=== PATIENT | female | born 1990 | race Caucasian/White ===

== ENCOUNTER 2019-05-21 10:05 | Inpatient (IN) | payer OTHER ==
[~2019-05-21] VITALS: Ht 162.6 cm; Wt 96.4 kg
[2019-05-21 11:05] LABS: HEMATOCRIT 43.9 % (36.0-47.0); HEMOGLOBIN 14.8 g/dl (12.0-15.5); MEAN CORPUSCULAR HEMOGLOBIN 29.3 pg (27.0-33.0); MEAN CORPUSCULAR HGB CONC 33.7 g/dl (32.0-36.5); MEAN CORPUSCULAR VOLUME 86.9 fl (80.0-96.0); PLATELET COUNT, AUTOMATED 373 10^3/uL (150-450); RED BLOOD COUNT 5.05 10^6/uL (4.00-5.40); WHITE BLOOD COUNT 5.9 10^3/uL (4.0-10.0)
[2019-05-21 11:46] LABS: ACETAMINOPHEN LEVEL < 2.0 UG/ML (10.0-30.0); ALBUMIN 4.6 GM/DL (3.2-5.2); ALT/SGPT 139 U/L (12-78); BILIRUBIN,DIRECT 0.1 MG/DL (0.0-0.2); BILIRUBIN,TOTAL 0.4 MG/DL (0.2-1.0); BLOOD UREA NITROGEN 10 MG/DL (7-18); CALCIUM LEVEL 9.2 MG/DL (8.5-10.1); CARBON DIOXIDE LEVEL 26 MEQ/L (21-32); CHLORIDE LEVEL 105 MEQ/L (98-107); CREATININE FOR GFR 2.24 MG/DL (0.55-1.30); ETHYL ALCOHOL (ETHANOL) < 0.003 % (0.000-0.010); GLOMERULAR FILTRATION RATE 27.5 (>60); GLUCOSE, FASTING 127 MG/DL (70-100); POTASSIUM SERUM 3.8 MEQ/L (3.5-5.1); SALICYLATE LEVEL < 1.7 MG/DL (5.0-30.0); SODIUM LEVEL 139 MEQ/L (136-145); THYROID STIMULATING HORMONE 0.392 uIU/ML (0.358-3.740); TOTAL PROTEIN 8.3 GM/DL (6.4-8.2)
[2019-05-21 12:40] LABS: AMPHETAMINES LEVEL URINE NEGATIVE (NEGATIVE); BARBITURATES URINE NEGATIVE (NEGATIVE); BENZODIAZEPINES URINE NEGATIVE (NEGATIVE); CANNABINOIDS URINE NEGATIVE (NEGATIVE); COCAINE METABOLITE URINE NEGATIVE (NEGATIVE); METHADONE URINE NEGATIVE (NEGATIVE); OPIATES URINE NEGATIVE (NEGATIVE); PHENCYCLIDINE URINE NEGATIVE (NEGATIVE)
[2019-05-21] MEDS ORDERED: MAALOX 30 ML SUSP *UDC PO PRN (16:45)
[2019-05-21] MEDS ORDERED: ACETAMINOPHEN TAB 650MG DOSE (2X325MG) PO PRN (16:45)
[2019-05-21] MEDS ORDERED: MOM 30ML SUSPENSION UDC PO PRN (16:45)
[2019-05-21 17:34] VITALS: BP 154/84
[2019-05-21] MEDS: traZODone 50 MG TAB PO PRN (22:03)
[2019-05-22 06:55] VITALS: BP 133/90
--- NOTE | 2019-05-22 08:42 | HPEPDOC ---
[facility] Medical History & Physical Date of Admission May 22, 2019 Date of Service: May 22, 2019 History and Physical CHIEF COMPLAINT: Admitted to inpatient mental health unit for depression HISTORY OF PRESENT ILLNESS: 28-year-old female with past medical history of depression and multiple suicide attempts, is admitted to inpatient mental health unit for worsening depression. Patient was having fleeting thoughts of suicide, went to see his psychiatrist yesterday who then admitted her to inpatient mental health unit. Patient denies any other medical history, denies taking any medications in the outpatient setting, has no complaints at this time. She denies any shortness of breath, chest pain, nausea, vomiting, abdominal pain, diarrhea, or urinary changes. 10 point review of system is negative except for above PAST MEDICAL HISTORY: 1. Depression. 2. Suicide attempt. PAST SURGICAL HISTORY: 1. None. SOCIAL HISTORY: Denies smoking. Denies alcohol. Denies drug use FAMILY HISTORY: Denies family history of cancer, heart disease ALLERGIES: Please see below. HOME MEDICATIONS: Please see below. PHYSICAL EXAMINATION: VITAL SIGNS: Please see below. GENERAL: No distress HEENT: Normocephalic, atraumatic, moist mucous membranes NECK: Supple CARDIOVASCULAR EXAMINATION: S1, S2, no murmurs RESPIRATORY EXAMINATION: Clear to auscultation, no wheezing ABDOMINAL EXAMINATION: Soft, nontender, nondistended, positive bowel sounds EXTREMITIES: Range of motion intact SKIN: No rash NEUROLOGICAL EXAMINATION: Alert and oriented 3, no focal deficits PSYCHIATRIC EXAMINATION: Calm and cooperative LABORATORY DATA: See below MICROBIOLOGY: Please see below. ASSESSMENT: 28-year-old female with past medical history depression and suicidal ideation is admitted to inpatient mental health unit for fleeting thoughts of vergara icide, found to have elevated creatinine. PLAN: 1. Elevated creatinine. No previous creatinine available for comparison, unknown etiology, patient denies any previous history and no composed at this time, likely acute, repeat CMP now, we'll treat based on current labs, hold off on extensive workup at this time. 2. depression/suicidal ideation. Management as per primary team Vital Signs Vital Signs Date Time Temp Pulse Resp B/P (MAP) Pulse Ox O2 Delivery O2 Flow Rate FiO2 05/22/19 06:55 99.2 95 18 133/90 (104) 94 Room Air Laboratory Data Labs 24H Laboratory Tests 2 05/21/19 10:55: Anion Gap 8, Glomerular Filtration Rate 27.5L, Calcium Level 9.2, Total Bilirubin 0.4, Direct Bilirubin 0.1, Aspartate Amino Transf (AST/SGOT) 60H, Alanine Aminotransferase (ALT/SGPT) 139H, Alkaline Phosphatase 63, Total Protein 8.3H, Albumin 4.6, Albumin/Globulin Ratio 1.24, Thyroid Stimulating Hormone (TSH) 0.392, Salicylates Level < 1.7L, Acetaminophen Level < 2.0L, Ethyl Alcohol Level < 0.003 05/21/19 10:56: Nucleated Red Blood Cells % (auto) 0.0 05/21/19 11:48: Urine Opiates Screen NEGATIVE, Urine Methadone Screen NEGATIVE, Urine Barbiturates Screen NEGATIVE, Urine Phencyclidine Screen NEGATIVE, Urine Amphetamines Screen NEGATIVE, Urine Benzodiazepines Screen NEGATIVE, Urine Cocaine Metabolite Screen NEGATIVE, Urine Cannabinoids Screen NEGATIVE CBC/BMP Laboratory Tests 05/21/19 10:55 05/21/19 10:56 Home Medications No Active Prescriptions or Reported Meds Allergies Coded Allergies: No Known Allergies (Verified Allergy, Unknown, 05/21/19) A-FIB/CHADSVASC A-FIB History Current/History of A-Fib/PAF?: No RICA IRVIN MD May 22, 2019 08:42
[2019-05-22] MEDS: NICOTINE 21MG/24HR 1 EA TRANSDERMAL TD SCH (09:00)
[2019-05-22 09:33] LABS: ALBUMIN 4.2 GM/DL (3.2-5.2); BILIRUBIN,TOTAL 0.4 MG/DL (0.2-1.0); CALCIUM LEVEL 8.9 MG/DL (8.5-10.1); CREATININE FOR GFR 1.9 MG/DL (0.55-1.30); GLOMERULAR FILTRATION RATE 33.3 (>60); POTASSIUM SERUM 3.7 MEQ/L (3.5-5.1); TOTAL PROTEIN 7.9 GM/DL (6.4-8.2)
[2019-05-22] MEDS ORDERED: NS 1,000 ML IV ONE (11:30)
--- NOTE | 2019-05-22 11:46 | MHHPEPDOC ---
[facility] History & Physical History and Physical DATE OF ADMISSION: May 21, 2019 at 16:38 New Patient Anyi Roberson MRN: N/A Date of : N/A Date of Service: 05/22/2019 Chief Complaint " I feel so lonely." History of Present Illness The patient a 28-year-old woman who is originally from [place] presents with likely adjustment problems in the form of low mood, fatigue, loss of interest, and anxiety related to having conflicts with her . She reports she is a dependent and had been seeing her therapist at [facility] and that she had some suicidal thoughts. She reports that she has conflict with her and that being he is her primary support structure in the local area she finds it difficult to cope whenever this happens. She reported feeling lonely and hopeless. The patient reports that she had suicidal thoughts, but they have vanished since she had arrived on our unit. The patient reports that she has been feeling depressed and tearful. Review Of Systems Depression: As above. Anxiety: As above. Susan: The patient denies any episodes of euphoria/dysphoria associated with decreased need for sleep, hedonism, talkatively or impulsivity lasting longer than 5 days. Psychotic: The patient denies any experiences of auditory or visual hallucinations. They deny any episodes of paranoia or delusional thinking in the past Trauma: The patient denies any traumatic events associated with nightmares or intrusive thoughts. Borderline: The patient screens negative for borderline personality at this junction. Past Psychiatric History Reports having admissions when she was a younger girl in [place] have been t ried on antidepressant, but no longer takes them. Recently established [facility] for therapy. Reports an overdose as a child. Allergies Please see below. Family Psychiatric History The patient denies/is unaware any history of mental health history including addictions and suicide. Social History The patient grew up in [place] and reports having verbally abusive parents, but no physical or sexual abuse growing up. She reports growing up in the [place] with cultural connections. She is currently a dependent and reports that she has no support in the local area. She has some income from the through her . She has no significant legal history and had completed high school. Substance Abuse History The patient denies any excessive alcohol use, tobacco or illicit drug use, denies history of substance use treatment. Medical History Patient has no significant past medical history. Mental Status Examination General: Well dressed with good hygiene Speech: Spontaneous and fluid Thought processes: Linear and logical MSK: Smooth and coordinated gait, no signs of tremors or involuntary orofacial movements Thought content: Some hopelessness. Abstract reasoning, and computation: Intact Description of associations: Intact Description of abnormal or psychotic thoughts: Denies any suicidal or homicidal ideation. Denies any auditory or visual hallucinations. Does not appear to be responding to internal stimuli. Does not appear to be endorsing any bizarre or paranoid ideation. Judgment: fair Insight: fair Orientation: Alert and orientated 3 Cognition: Grossly normal Recent and remote memory: Intact Attention span and concentration: Intact Fund of knowledge: Adequate Mood: "okay" Affect: Tearful at times. Diagnoses Unspecified depressive disorder. MDD versus adjustment. Assessment and Plan Unspecified depressive disorder/MDD: Start Wellbutrin 150 mg daily, screen negative for seizures and eating disorders at this time. Discussed risks, be nefits, and potential side effects with patient. Disposition Patient will be converted to a voluntary today as no longer meets involuntary criteria, will observe likely discharge in the next 1-2 days. Problem List 1. Risk for suicide. 2. Ineffective coping. Initial Treatment Plan 1. Patient was admitted on a 9.39 legal status. 2. Complete history was obtained. 3. With patients permission, family will be contacted and database will be expanded. 4. Patients medication regimen will be reviewed and changed accordingly. 5. Patient will be provided with protected environment. 6. Patient will be treated with individual, group, and milieu therapies. 7. Patient will receive supportive psych-education. 8. Discharge planning will commence immediately. 9. Outpatient follow-up treatment will be strongly recommended. 10. The initial treatment plan will focus initially on: Estimated Length Of Stay 3 days. Time Spent 70 minutes with greater than 50% of time spent on counseling/coordination of care. Friday Vital Signs Vital Signs Date Time Temp Pulse Resp B/P (MAP) Pulse Ox O2 Delivery O2 Flow Rate FiO2 05/22/19 06:55 99.2 95 18 133/90 (104) 94 Room Air Laboratory Data 24H Labs Laboratory Tests 2 05/21/19 11:48: Urine Opiates Screen NEGATIVE, Urine Methadone Screen NEGATIVE, Urine Barbiturates Screen NEGATIVE, Urine Phencyclidine Screen NEGATIVE, Urine Amphetamines Screen NEGATIVE, Urine Benzodiazepines Screen NEGATIVE, Urine Cocaine Metabolite Screen NEGATIVE, Urine Cannabinoids Screen NEGATIVE 05/22/19 08:49: Anion Gap 9, Glomerular Filtration Rate 33.3L, Calcium Level 8.9, Total Bilirubin 0.4, Aspartate Amino Transf (AST/SGOT) 52H, Alanine Aminotransferase (ALT/SGPT) 122H, Alkaline Phosphatase 64, Total Protein 7.9, Albumin 4.2, Albumin/Globulin Ratio 1.14 CBC/BMP Laboratory Tests 05/22/19 08:49 Medications No Active Prescriptions or Reported Meds Allergies Coded Allergies: No Known Allergies (Verified Allergy, Unknown, 05/21/19) A-FIB/CHADSVASC A-FIB History Current/History of A-Fib/PAF?: No LENA GOODEN DO May 22, 2019 11:46
[2019-05-22] MEDS ORDERED: buPROPion **XL** TABLET 150MG (WELLBUTRIN XL) PO ONE (14:00)
[2019-05-22 16:06] VITALS: BP 145/91
[2019-05-22] MEDS: traZODone 50 MG TAB PO PRN (20:44)
[2019-05-23 06:11] VITALS: BP 140/82
[2019-05-23 06:57] LABS: ALBUMIN 3.5 GM/DL (3.2-5.2); BILIRUBIN,TOTAL 0.4 MG/DL (0.2-1.0); CALCIUM LEVEL 8.9 MG/DL (8.5-10.1); CREATININE FOR GFR 1.28 MG/DL (0.55-1.30); GLOMERULAR FILTRATION RATE 52.5 (>60); POTASSIUM SERUM 3.9 MEQ/L (3.5-5.1); TOTAL PROTEIN 6.5 GM/DL (6.4-8.2)
--- NOTE | 2019-05-23 07:38 | IPNPDOC ---
Date Seen The patient was seen on 05/23/19. Progress Note 05/23/19 As suspected, elevated creatinine was likely secondary to pre-renal CLAUDETTE. Patient was given 1L of NS yesterday with normalization of creatinine today. LFTs were slightly elevated which are also trending down. Recommend outpatient follow up with PCP 1-2 weeks after discharge to monitor r enal/liver function. No further recommendations, please re-consult if needed. VS, I&O, 24H, Fishbone Vital Signs/I&O Vital Signs Date Time Temp Pulse Resp B/P (MAP) Pulse Ox O2 Delivery O2 Flow Rate FiO2 05/23/19 06:11 98.5 104 16 140/82 (101) 98 Room Air Laboratory Data 24H LABS Laboratory Tests 2 05/22/19 08:49: Anion Gap 9, Glomerular Filtration Rate 33.3L, Calcium Level 8.9, Total Bilirubin 0.4, Aspartate Amino Transf (AST/SGOT) 52H, Alanine Aminotransferase (ALT/SGPT) 122H, Alkaline Phosphatase 64, Total Protein 7.9, Albumin 4.2, Albumin/Globulin Ratio 1.14 05/23/19 06:18: Anion Gap 4L, Glomerular Filtration Rate 52.5L, Calcium Level 8.9, Total Bilirubin 0.4, Aspartate Amino Transf (AST/SGOT) 42H, Alanine Aminotransferase (ALT/SGPT) 91H, Alkaline Phosphatase 56, Total Protein 6.5, Albumin 3.5, Albumin/Globulin Ratio 1.17 CBC/BMP Laboratory Tests 05/22/19 08:49 05/23/19 06:18 RICA IRVIN MD May 23, 2019 07:38
[2019-05-23] MEDS: NICOTINE 21MG/24HR 1 EA TRANSDERMAL TD SCH (08:02)
[2019-05-23] MEDS ORDERED: buPROPion **XL** TABLET 150MG (WELLBUTRIN XL) PO SCH (09:00)
[2019-05-23] MEDS ORDERED: INFLUENZA QUADRIVALENT PF VACCINE 0.5ML SYRINGE (90686) IM ONE (09:00)
--- NOTE | 2019-05-23 10:51 | MHIPNPDOC ---
[facility] Progress Note Progress Note DATE OF SERVICE: 05/23/19 HISTORY: . VITAL SIGNS: See below. NEW TEST RESULTS: . CURRENT MEDICATIONS: See below. MENTAL STATUS EXAMINATION: Patient is a -year old female, who is . Speech: Is . Language skills are . Thought processes including: . Thought content: . Abstract reasoning, and computation: . Description of associations: . Description of abnormal or psychotic thoughts: . Judgment: . Insight: [very limited, good, fair. poor]. Orientation: . Recent and remote memory: . Attention span and concentration: . Language: . Fund of knowledge: . Mood: . Affect: . DIAGNOSES: 1. . 2. . 3. . ASSESSMENT: MANAGEMENT PLAN: . TIME SPENT: minutes. Vital Signs Vital Signs Date Time Temp Pulse Resp B/P (MAP) Pulse Ox O2 Delivery O2 Flow Rate FiO2 05/23/19 06:11 98.5 104 16 140/82 (101) 98 Room Air Laboratory Data 24H Labs Laboratory Tests 2 05/23/19 06:18: Anion Gap 4L, Glomerular Filtration Rate 52.5L, Calcium Level 8.9, Total Bili branham 0.4, Aspartate Amino Transf (AST/SGOT) 42H, Alanine Aminotransferase (ALT/SGPT) 91H, Alkaline Phosphatase 56, Total Protein 6.5, Albumin 3.5, Albumin/Globulin Ratio 1.17 CBC/BMP Laboratory Tests 05/23/19 06:18 Current Medications Current Medications Medications (Trade) Dose Ordered Sig/Darrell Route PRN Reason Start Time Stop Time Status Last Admin Dose Admin Acetaminophen (Tylenol Tab) 650 mg Q6HP PRN PO HEADACHE or DISCOMFORT 05/21/19 16:45 Al Hydrox/Mg Hydrox/Simethicone (Mylanta) 30 ml Q4HP PRN PO HEARTBURN/INDIGESTION 05/21/19 16:45 05/22/19 20:44 Bupropion HCl (Wellbutrin Xl) 150 mg QAM PO 05/23/19 09:00 05/23/19 08:27 Home Med (Med Rec Complete!) ASDIRECTED XX 05/21/19 14:30 05/21/19 14:29 DC Magnesium Hydroxide (Milk Of Magnesia) 30 ml DAILYPRN PRN PO CONSTIPATION 05/21/19 16:45 Nicotine (Nicoderm Cq 21mg) 1 patch DAILY TD 05/22/19 09:00 Trazodone HCl (Desyrel) 50 mg QHSP PRN PO INSOMNIA 05/21/19 16:45 05/22/19 20:44 Allergies Coded Allergies: No Known Allergies (Verified Allergy, Unknown, 05/21/19) LENA GOODEN DO May 23, 2019 10:51
--- NOTE | 2019-05-23 11:17 | MHDSPDOC ---
[facility] Discharge Summary Discharge Summary DATE OF ADMISSION: May 21, 2019 at 16:38 DATE OF DISCHARGE: 05/23/19 Discharge Anyi Roberson MRN: N/A Date of : N/A Date of Service: 05/23/2019 Diagnoses Unspecified depressive disorder. MDD versus adjustment. History of Present Illness The patient a 28-year-old woman who is originally from [place] presents with likely adjustment problems in the form of low mood, fatigue, loss of interest, and anxiety related to having conflicts with her . She reports she is a dependent and had been seeing her therapist at [facility] and that she had some suicidal thoughts. She reports that she has conflict with her and that being he is her primary support structure in the local area she finds it difficult to cope whenever this happens. She reported feeling lonely and hopeless. The patient reports that she had suicidal thoughts, but they have vanished since she had arrived on our unit. The patient reports that she has been feeling depressed and tearful. Consultants Involved Hospitalist/PCP screening Treatment and Progress On The Unit The patient is admitted to the mental health unit and subsequently started on Wellbutrin 150 mg daily which she tolerates well. She made some improvements and her suicidality was not present during her 48 hours of observation on our unit. She did well without any major interventions and demonstrate no concerning behavior or ideation upon her observing on our unit. She did have some tearfulness at first but stabilized well after being able to talk to her . She subsequently did well on our unit and requested discharge as she reported that she wanted to continue therapy as an outpatient and came up with an appropriate discharge plan. Discharge Assessment 28-year-old woman with a history of potentially adjustment versus MDD presents and is treated with appropriate antidepressant, improves well and no longer meets involuntary criteria after 48 hours of observation, initially we had planned on converting her to voluntary but she had requested discharge prior to filling out the form and thus would need to be discharged in good devin. The patient at the time of discharge did not meet criteria for involuntary admission/extension due to having a normal mental status exam, fair insight into the situation, They are engaged in the discharge process, as well as being friendly and amenable in behavioral control and havent been engaging in any observed concerning behavior or ideation recently. They decline voluntary ext ension/admission at this time and must be discharged in good devin, as Im unable to make a case for holding the patient against their will. They may have historical risk factors of admissions and other interactions with psychiatry however, those are not modifiable from a clinical perspective. The patient will need to be discharged in good devin. Mental Status Examination General: Well dressed with good hygiene Speech: Spontaneous and fluid Thought processes: Linear and logical MSK: Smooth and coordinated gait, no signs of tremors or involuntary orofacial movements Thought content: Future orientated Abstract reasoning, and computation: Intact Description of associations: Intact Description of abnormal or psychotic thoughts: Denies any suicidal or homicidal ideation. Denies any auditory or visual hallucinations. Does not appear to be responding to internal stimuli. Does not appear to be endorsing any bizarre or paranoid ideation. Judgment: fair Insight: fair Orientation: Alert and orientated 3 Cognition: Grossly normal Recent and remote memory: Intact Attention span and concentration: Intact Fund of knowledge: Adequate Mood: "okay" Affect: Euthymic with a full range Follow Up The social work team worked during the predischarge meeting in order to evaluate for further issues of lethality address them fully before discharge. They worked on safety planning with the patient's family members in order to ensure that the patient will have a safe and effective discharge. Time Spent The amount of time spent in the coordination of care for this patient was approximately 45 minutes. Friday Vital Signs/I&Os Vital Signs Date Time Temp Pulse Resp B/P (MAP) Pulse Ox O2 Delivery O2 Flow Rate FiO2 05/23/19 06:11 98.5 104 16 140/82 (101) 98 Room Air Laboratory Data Labs 24H Laboratory Tests 2 05/23/19 06:18: Anion Gap 4L, Glomerular Filtration Rate 52.5L, Calcium Level 8.9, Total Bilirubin 0.4, Aspartate Amino Transf (AST/SGOT) 42H, Alanine Aminotransferase (ALT/SGPT) 91H, Alkaline Phosphatase 56, Total Protein 6.5, Albumin 3.5, Albumin/Globulin Ratio 1.17 CBC/BMP Laboratory Tests 05/23/19 06:18 Medications Scheduled Bupropion Hcl (Bupropion Xl) 150 Mg Tab.er.24h, 150 MG PO QAM for mood for 7 Days, #7 Nicotine (Nicotine Patch) 21 Mg Patch.td24, 1 PATCH TD DAILY for tobacco for 30 Days, #30 Scheduled PRN Trazodone HCl (Trazodone HCl) 50 Mg Tablet, 100 MG PO QHSP PRN for INSOMNIA for 7 Days, #14 Allergies Coded Allergies: No Known Allergies (Verified Allergy, Unknown, 05/21/19) LENA GOODEN DO May 23, 2019 11:17
[2019-05-23] MEDS ORDERED: TRAZ-252 PO (11:24)
[2019-05-23] MEDS ORDERED: BUPR150T3 PO (11:24)
[2019-05-23] MEDS ORDERED: NICO21PAT TD (11:24)
== END 2019-05-23 14:05 | disposition home or self-care (01) | DRG 881 ==
LOC: M ED 10:05 → M ED INP 16:38 → M PSY 17:26
PROVIDERS: ADMIT Psychiatry & Neurology Addiction Medicine; ATTEND Psychiatry & Neurology Addiction Medicine
DX: F32.9 Major depressive disorder, single episode, unspecified (principal); F43.21 Adjustment disorder with depressed mood

== ENCOUNTER 2019-11-23 10:06 | Inpatient (IN) | payer OTHER ==
[~2019-11-23] VITALS: Ht 162.6 cm; Wt 106.6 kg
[~2019-11-23 10:06] MED LIST: BUPR150T3 PO; NICO21PAT TD; TRAZ-252 PO
[2019-11-23] MEDS ORDERED: NS 1,000 ML IV ONE (12:15)
[2019-11-23 12:17] LABS: HEMATOCRIT 43.1 % (36.0-47.0); HEMOGLOBIN 14.2 g/dl (12.0-15.5); MEAN CORPUSCULAR HEMOGLOBIN 28.2 pg (27.0-33.0); MEAN CORPUSCULAR HGB CONC 32.9 g/dl (32.0-36.5); MEAN CORPUSCULAR VOLUME 85.5 fl (80.0-96.0); PLATELET COUNT, AUTOMATED 379 10^3/uL (150-450); RED BLOOD COUNT 5.04 10^6/uL (4.00-5.40); WHITE BLOOD COUNT 6.2 10^3/uL (4.0-10.0)
[2019-11-23 12:29] LABS: AMPHETAMINES LEVEL URINE NEGATIVE (NEGATIVE); BARBITURATES URINE NEGATIVE (NEGATIVE); BENZODIAZEPINES URINE NEGATIVE (NEGATIVE); CANNABINOIDS URINE NEGATIVE (NEGATIVE); COCAINE METABOLITE URINE NEGATIVE (NEGATIVE); METHADONE URINE NEGATIVE (NEGATIVE); OPIATES URINE NEGATIVE (NEGATIVE); PHENCYCLIDINE URINE NEGATIVE (NEGATIVE)
[2019-11-23 12:46] LABS: HCG, SERUM QUALITATIVE NEGATIVE (NEGATIVE)
[2019-11-23 12:56] LABS: ACETAMINOPHEN LEVEL < 2.0 UG/ML (10.0-30.0); ALBUMIN 3.5 GM/DL (3.2-5.2); ALT/SGPT 296 U/L (12-78); BILIRUBIN,DIRECT < 0.1 MG/DL (0.0-0.2); BILIRUBIN,TOTAL 0.2 MG/DL (0.2-1.0); BLOOD UREA NITROGEN 12 MG/DL (7-18); CALCIUM LEVEL 7.9 MG/DL (8.5-10.1); CARBON DIOXIDE LEVEL 22 MEQ/L (21-32); CHLORIDE LEVEL 112 MEQ/L (98-107); CREATININE FOR GFR 0.78 MG/DL (0.55-1.30); ETHYL ALCOHOL (ETHANOL) 0.353 % (0.000-0.010); GLOMERULAR FILTRATION RATE > 60.0 (>60); GLUCOSE, FASTING 111 MG/DL (70-100); POTASSIUM SERUM 4.2 MEQ/L (3.5-5.1); SALICYLATE LEVEL < 1.7 MG/DL (5.0-30.0); SODIUM LEVEL 145 MEQ/L (136-145); THYROID STIMULATING HORMONE 0.583 uIU/ML (0.358-3.740); TOTAL PROTEIN 6.9 GM/DL (6.4-8.2)
[2019-11-23] MEDS ORDERED: FOLIC ACID 1 MG TAB PO SCH (19:00)
[2019-11-23] MEDS ORDERED: MULTIVITAMINS/MINERALS THERAP 1 TAB PO SCH (19:00)
[2019-11-23] MEDS ORDERED: THIAMINE 100 MG TAB PO SCH (19:00)
[2019-11-23] MEDS ORDERED: MULTCAP PO (19:04)
[2019-11-23] MEDS ORDERED: TRAZ-252 PO (19:04)
[2019-11-23] MEDS ORDERED: BUPR150T3 PO (19:04)
[2019-11-23] MEDS ORDERED: LORazepam 2 MG TAB PO PRN (19:15)
--- NOTE | 2019-11-24 07:20 | ECGEPIP ---
[facility] - ED Test Date: 2019-11-24 Pat Name: MAURA BUTLER Department: Room: - Gender: Female Customer Service Associate: ADA : 1990 Requested By: JASON Louis Order Number: [id number] Reading MD: Demario English Measurements Intervals Lynx Rate: 96 P: 29 NC: 153 QRS: 1 QRSD: 94 T: 24 QT: 370 QTc: 469 Interpretive Statements SINUS RHYTHM POOR R WAVE PROGRESSION NO PRIORS FOR COMPARISON Electronically Signed on 11-24-2019 7:20:51 EDT by Demario English
[2019-11-24] MEDS ORDERED: buPROPion **XL** TABLET 150MG (WELLBUTRIN XL) PO SCH (09:00)
[2019-11-24] MEDS ORDERED: MOM 30ML SUSPENSION UDC PO PRN (15:15)
[2019-11-24] MEDS ORDERED: MAALOX 30 ML SUSP *UDC PO PRN (15:15)
[2019-11-24] MEDS ORDERED: IBUPROFEN 400 MG TAB PO PRN (15:15)
[2019-11-24] MEDS ORDERED: LORazepam 2 MG TAB PO PRN (15:15)
[2019-11-24 15:49] VITALS: BP 150/98
[2019-11-24 16:34] VITALS: BP 150/98
[2019-11-24] MEDS: MULTIVITAMINS/MINERALS THERAP 1 TAB PO SCH (16:51)
[2019-11-24] MEDS: THIAMINE 100 MG TAB PO SCH (16:51)
[2019-11-24] MEDS: FOLIC ACID 1 MG TAB PO SCH (16:51)
[2019-11-24] MEDS: traZODone 50 MG TAB PO PRN (22:03)
[2019-11-25 05:30] VITALS: BP 148/98
[2019-11-25 06:32] VITALS: BP 148/98
[2019-11-25] MEDS ORDERED: buPROPion **XL** TABLET 150MG (WELLBUTRIN XL) PO SCH (09:00)
[2019-11-25] MEDS ORDERED: MULTIVITAMINS/MINERALS THERAP 1 TAB PO SCH (09:00)
[2019-11-25] MEDS: THIAMINE 100 MG TAB PO SCH ×2 (09:33→20:38)
[2019-11-25] MEDS: FOLIC ACID 1 MG TAB PO SCH (09:33)
[2019-11-25] MEDS: MULTIVITAMINS/MINERALS THERAP 1 TAB PO SCH (09:33)
--- NOTE | 2019-11-25 09:42 | MHHPEPDOC ---
[facility] History & Physical History and Physical DATE OF ADMISSION: Nov 24, 2019 at 15:11 Subjective HPI: The patient was admitted to the inpatient mental health unit after multiple stressors caused her to begin to drink. She reports that she became drunk and subsequently suicidal. She was brought in and admitted out of an abundance of caution. Dysthymic and having difficulties with her mood and insomnia. She reports that she began to drink and that her situation began to spiral. Allergies reviewed. MEDICATIONS: Patient is currently on Wellbutrin 150 milligrams daily from last admission. MEDICAL HISTORY: The patient reports that since her last admission May, she had been doing Okay, but noticed her Wellbutrin had stopped working. Past medical history includes a history of depression and alcoholism. Previously admitted in May 2018. FAMILY HISTORY: Family history no change from previous. SOCIAL HISTORY - OCCUPATION: Occupational history reviewed no changes. SOCIAL HISTORY - LIVING SITUATION: She reported that stressors including her 's job as well as their relationship had cause to become despondent. Social history currently lives with her who's in the . SOCIAL HISTORY - SUBSTANCE USE: Denies any other substances other than alcohol. Reports that her drinking still remains a problem. TESTS: Continues to screen negative for psychotic and bipolar disorders. SURGICAL HISTORY: Surgical history reviewed Objective Mood: Dysthymic. Pleasant and cooperative. Speech: Spontaneous and Fluid. Normal volume. Normal rate. Cognition: Grossly intact. Thought Form: Linear and goal directed. Thought Content: No evidence of suicidal ideation. No evidence of delusions. No evidence of aggressive or homicidal ideation. No thoughts of self harm. Judgement: Poor. Insight: Poor. 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 Vital Signs Vital Signs Date Time Temp Pulse Resp B/P (MAP) Pulse Ox O2 Delivery O2 Flow Rate FiO2 11/25/19 06:32 98.6 86 16 148/98 (115) 11/24/19 16:34 97 Room Air Medications Scheduled Bupropion Hcl (Bupropion Xl) 150 Mg Tab.er.24h, 150 MG PO DAILY, (Reported) Multivitamin (Multivitamins) 1 Each Capsule, 1 CAP PO DAILY, (Reported) Scheduled PRN Trazodone HCl (Trazodone HCl) 50 Mg Tablet, 50 MG PO QHS PRN for SLEEP, (Reported) Allergies Coded Allergies: No Known Allergies (Verified Allergy, Unknown, 05/21/19) LENA GOODEN DO Nov 25, 2019 09:41
--- NOTE | 2019-11-25 12:25 | HPEPDOC ---
[facility] Medical History & Physical Date of Admission Nov 23, 2019 Date of Service: Nov 25, 2019 Attending Physician: SHIRA FREY MD History and Physical CHIEF COMPLAINT: Admitted to inpatient mental health unit for depression with suidical ideation with ongoing alcohol use disorder HISTORY OF PRESENT ILLNESS: 29-year-old W with a history of depression and prior suicide attempts, as well as ongoing alcohol use disorder who is admitted to inpatient mental health unit for suicidal ideation and depression after presenting intoxicated with elevated ethanol levels on tox screen. Patient corroborated the history given by her who reported that she told him that she expressed suicidal thoughts without a clear plan. She otherwise has a history of gestational HTN and elevated LFTs. On this presentation, CBC and BMP were wnl, but transaminitis was slightly worse than prior with AST 90, ALT 296 without leukocytosis, anemia or thrombocytopenia. She otherwise denies taking any medications in the outpatient setting, and has no physical complaints at this time without shortness of breath, chest pain, nausea, vomiting, abdominal pain, diarrhea or dysuria. 10 point review of system is negative except for noted above PAST MEDICAL HISTORY: 1. Depression. 2. Suicide attempt. 3. Chronic transaminitis PAST SURGICAL HISTORY: None. SOCIAL HISTORY: Denies smoking. Active excessive alcohol Denies drug use FAMILY HISTORY: Denies family history of cancer, heart disease ALLERGIES: Please see below. HOME MEDICATIONS: Please see below. PHYSICAL EXAMINATION: VITAL SIGNS: Please see below. GENERAL: No distress, morbidly obese HEENT: Normocephalic, atraumatic, moist mucous membranes NECK: Supple CARDIOVASCULAR EXAMINATION: S1, S2, no murmurs RESPIRATORY EXAMINATION: Clear to auscultation, no wheezing ABDOMINAL EXAMINATION: Normoactive bowel sounds, soft, nontender, nondistended EXTREMITIES: WWP, no LE edema SKIN: No rashes, has arm professionally done tattoos without erythema or skin breakdown NEUROLOGICAL EXAMINATION: CN 3-12 wnl, no focal deficits, ambulatory PSYCHIATRIC EXAMINATION: Calm and cooperative, AOx3 LABORATORY DATA: See below MICROBIOLOGY: Please see below. ASSESSMENT: 29-year-old W with a history of depression and prior suicide attempts, as well as ongoing alcohol use disorder who is admitted to inpatient mental health unit for suicidal ideation and depression after presenting intoxicated with elevated ethanol levels on tox screen and mild worsening of chronic transaminitis. PLAN: 1. Mild worsening of chronic transaminitis with ALT>AST in the setting of active excessive alcohol use and morbid obesity -I imagine the morbid obesity and excessive alcohol use are contributors to her transaminitis but she warrants an outpatient workup for liver injury with her PCP upon discharge. I explained this to her to discuss with her PCP after discharge. 2. Depression with suicidal ideation. Management as per primary team 3. Alcohol use disorder: - Being managed by the primary team with CIWA protocol, thiamine, folate and multivitamins as well as bupropion DVT ppx: ambulatory Medicine will sign off at this time. Vital Signs Vital Signs Date Time Temp Pulse Resp B/P (MAP) Pulse Ox O2 Delivery O2 Flow Rate FiO2 11/25/19 06:32 98.6 86 16 148/98 (115) 11/24/19 16:34 97 Room Air Home Medications Scheduled Bupropion Hcl (Bupropion Xl) 150 Mg Tab.er.24h, 150 MG PO DAILY Multivitamin (Multivitamins) 1 Each Capsule, 1 CAP PO DAILY Scheduled PRN Trazodone HCl (Trazodone HCl) 50 Mg Tablet, 50 MG PO QHS PRN for SLEEP Allergies Coded Allergies: No Known Allergies (Verified Allergy, Unknown, 05/21/19) A-FIB/CHADSVASC A-FIB History Current/History of A-Fib/PAF?: No Current PO Anticoag Therapy: No Age/Risk Factor Scoring CHADSVASC: CHADSVASC Response (Comments) Value Age Risk Factor Age < 65 years old 0 Gender Risk Factor Female 1 Hx of CHF No 0 Hx of HTN Yes 1 Hx of Stroke/TIA/or VTE No 0 Hx of Diabetes No 0 Hx of Vascular Disease No 0 Total 2 Treatment Treatment ordered: NONE Reason Anticoagulant not given: Not indicated/[id number] SHIRA FREY MD Nov 25, 2019 11:45
[2019-11-25] MEDS: MIRTAZAPINE 7.5MG PER 1/2 TABLET PO SCH (20:38)
[2019-11-26 07:27] VITALS: BP 142/93
[2019-11-26 07:30] VITALS: BP 142/93
[2019-11-26] MEDS: THIAMINE 100 MG TAB PO SCH ×2 (09:19→20:55)
[2019-11-26] MEDS: FOLIC ACID 1 MG TAB PO SCH (09:19)
[2019-11-26] MEDS: MULTIVITAMINS/MINERALS THERAP 1 TAB PO SCH (09:19)
--- NOTE | 2019-11-26 10:31 | MHIPNPDOC ---
[facility] Progress Note Progress Note DATE OF SERVICE: 11/26/19 Subjective HPI: Anyi presents today for a check up. She reports to be feeling much improved. She reports that shes doing well and feeling good for discharge this coming Friday.Patient feels much improved. MEDICATIONS: Mirtazapine has been helpful for the sleep. Objective Appearance: Appears to be stated age. Well nourished. Well groomed. Behavior: Pleasant. Engaged. Cooperative with good eye contact. Affect: Appropriate to context. Full range. Mood: Euthymic. Appropriately reactive. Generally good. Speech: Normal rate. Spontaneous and Fluid. Normal volume. Motor: No gross motor abnormalities. Cognition: Alert, Attentive, and Oriented to person, place, time. Memory: No gross abnormalities of short or emt intermediate memory noted during interview. No formal testing. Thought Form: Linear and goal directed. Thought Content: No evidence of delusions. No evidence of suicidal ideation. No evidence of aggressive or homicidal ideation. No thoughts of self harm. Perception: No perceptual abnormalities noted. Judgement: Intact as evidenced by decision making in the recent past. Insight: Good insight into symptoms and treatment options. Assessment F33.8 Other recurrent depressive disorders F10.99 Alcohol use, unspecified with unspecified alcohol-induced disorder Plan Continue Mirtazapine 7.5 mg nightly. Send home with an abuse discussed with patient the options and treatment. Vital Signs Vital Signs Date Time Temp Pulse Resp B/P (MAP) Pulse Ox O2 Delivery O2 Flow Rate FiO2 11/26/19 07:30 92 142/93 11/26/19 07:27 98.5 18 Room Air 11/24/19 16:34 97 Current Medications Current Medications Medications (Trade) Dose Ordered Sig/Darrell Route PRN Reason Start Time Stop Time Status Last Admin Dose Admin Al Hydrox/Mg Hydrox/Simethicone (Mylanta) 30 ml Q4HP PRN PO HEARTBURN/INDIGESTION 11/24/19 15:15 Bupropion HCl (Wellbutrin Xl) 150 mg DAILY PO 11/24/19 09:00 11/24/19 15:28 DC 11/24/19 09:22 Bupropion HCl (Wellbutrin Xl) 150 mg DAILY PO 11/25/19 09:00 11/25/19 12:05 DC 11/25/19 09:33 Folic Acid (Folic Acid) 1 mg DAILY PO 11/23/19 19:00 11/23/19 19:09 DC 11/23/19 20:52 Folic Acid (Folic Acid) 1 mg DAILY PO 11/24/19 09:00 11/26/19 09:19 Home Med (Med Rec Complete!) ASDIRECTED XX 11/23/19 19:15 11/23/19 19:05 DC Ibuprofen (Advil) 400 mg Q6HP PRN PO PAIN 11/24/19 15:15 Lorazepam (Ativan) 2 mg ASDIRECTED PRN PO SEE PROTOCOL 11/23/19 19:15 11/24/19 15:28 DC Lorazepam (Ativan) 2 mg ASDIRECTED PRN PO SEE PROTOCOL 11/24/19 15:15 Magnesium Hydroxide (Milk Of Magnesia) 30 ml DAILYPRN PRN PO CONSTIPATION 11/24/19 15:15 Mirtazapine (Remeron) 7.5 mg QHS PO 11/25/19 21:00 11/25/19 20:38 Multivitamins (Theragram-M) 1 tab DAILY PO 11/23/19 19:00 11/23/19 19:09 DC 11/23/19 20:52 Multivitamins (Theragram-M) 1 tab DAILY PO 11/24/19 09:00 11/26/19 09:19 Multivitamins (Theragram-M) 1 tab DAILY PO 11/25/19 09:00 UNV Thiamine HCl (Thiamine HCl) 100 mg BID PO 11/23/19 19:00 11/23/19 19:10 DC 11/23/19 20:52 Thiamine HCl (Thiamine HCl) 100 mg BID PO 11/24/19 16:00 11/27/19 09:01 11/26/19 09:19 Trazodone HCl (Desyrel) 50 mg QHSP PRN PO INSOMNIA 11/24/19 15:15 11/24/19 22:03 Allergies Coded Allergies: No Known Allergies (Verified Allergy, Unknown, 05/21/19) LENA GOODEN DO Nov 26, 2019 10:31
[2019-11-26 16:11] VITALS: BP 140/83
[2019-11-26] MEDS: MIRTAZAPINE 7.5MG PER 1/2 TABLET PO SCH (20:55)
[2019-11-27 06:30] VITALS: BP 140/98
[2019-11-27] MEDS: THIAMINE 100 MG TAB PO SCH (08:23)
[2019-11-27] MEDS: FOLIC ACID 1 MG TAB PO SCH (08:23)
[2019-11-27] MEDS: MULTIVITAMINS/MINERALS THERAP 1 TAB PO SCH (08:23)
--- NOTE | 2019-11-27 15:50 | MHIPNPDOC ---
[facility] Progress Note Progress Note DATE OF SERVICE: 11/27/19 HISTORY: As per ED report: "Pt presented to ED intoxicated. Once pt was clinically sober PSA evaluated pt. Pt stated that she has been feeling suicidal for awhile now, Pt reported that she has been having trouble at home and life is very stressful. Pt reported she cannot pinpoint anything that caused the SI tonight. Pt was admitted to [facility] in Feb 2019. Pt denies AH/VH and HI. Pt reported past attempted a few years by taking sleeping pills. Pt denies any current plan but states "I'm just a burden a don't know how to control my emotions." during interview pt was very vague. PSA did ask pt if she believed she needed to be admitted and pt reported she did. PSA contacted pt . Pt stated that pt has been battling n alcohol addiction for a while and today they discussed her getting back in therapy and quitting drinking. Pt stated that he went upstairs to wake their children up for school and before he returned she had drank enough that she passed out on the couch. When he woke her up they began arguing and she started stating things like "I want to kill myself" and "I'm going to kill myself." Pt reported that he believes she is unsafe to be discharged at this time and she needs to be admitted" VITAL SIGNS: See below. NEW TEST RESULTS: See below CURRENT MEDICATIONS: See below. MENTAL STATUS EXAMINATION: Patient is a 29 year old female, who is alert, dressed in hospital clothes, not cooperative. She rolls her eyes and shows her disgust at having to be evaluated. Speech: Is normal in r/t/v/, spontaneous and fluent Language skills are intact Thought processes including: linear and coherent. Thought content: Denies SI/HI. She denies thought delusions, denies TAV hallucinations but she has angry thoughts about being evaluated at this time. Description of associations: intact. Description of abnormal or psychotic thoughts: denies SI/HI, thought delusions. Not responding to internal stimuli Judgment: limited Insight: poor. Orientation: x 3. Recent and remote memory: intact. Attention span and concentration: good. Fund of knowledge: average Mood: irritable. 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 She is defensive in a way because she doesn't want to cooperate with the interview. She constantly rolls her eyes in disgust and then she says she is tired about having to answer the same questions over and over again. I explained why it is necessary to ask her those questions, even when she gets irritated by it. She keps saying she is moving out of this area towards the end of the month as a way of justifying why she wouldn't be interested in Rehab. she becomes very irritable when I talk to her about her alcohol problem, which mkes me think that she has not reached that beaking point that makes people seek help. She says she doesn't want any medication changes at this time. MANAGEMENT PLAN: As per Dr. Cabrera TIME SPENT: 20 minutes. Vital Signs Vital Signs Date Time Temp Pulse Resp B/P (MAP) Pulse Ox O2 Delivery O2 Flow Rate FiO2 11/27/19 06:30 98.0 90 18 140/98 (112) 11/26/19 07:27 Room Air 11/24/19 16:34 97 Current Medications Current Medications Medications (Trade) Dose Ordered Sig/Darrell Route PRN Reason Start Time Stop Time Status Last Admin Dose Admin Al Hydrox/Mg Hydrox/Simethicone (Mylanta) 30 ml Q4HP PRN PO HEARTBURN/INDIGESTION 11/24/19 15:15 Bupropion HCl (Wellbutrin Xl) 150 mg DAILY PO 11/24/19 09:00 11/24/19 15:28 DC 11/24/19 09:22 Bupropion HCl (Wellbutrin Xl) 150 mg DAILY PO 11/25/19 09:00 11/25/19 12:05 DC 11/25/19 09:33 Folic Acid (Folic Acid) 1 mg DAILY PO 11/23/19 19:00 11/23/19 19:09 DC 11/23/19 20:52 Folic Acid (Folic Acid) 1 mg DAILY PO 11/24/19 09:00 11/27/19 08:23 Home Med (Med Rec Complete!) ASDIRECTED XX 11/23/19 19:15 11/23/19 19:05 DC Ibuprofen (Advil) 400 mg Q6HP PRN PO PAIN 11/24/19 15:15 Lorazepam (Ativan) 2 mg ASDIRECTED PRN PO SEE PROTOCOL 11/23/19 19:15 11/24/19 15:28 DC Lorazepam (Ativan) 2 mg ASDIRECTED PRN PO SEE PROTOCOL 11/24/19 15:15 11/27/19 15:01 DC Magnesium Hydroxide (Milk Of Magnesia) 30 ml DAILYPRN PRN PO CONSTIPATION 11/24/19 15:15 Mirtazapine (Remeron) 7.5 mg QHS PO 11/25/19 21:00 11/26/19 20:55 Multivitamins (Theragram-M) 1 tab DAILY PO 11/23/19 19:00 11/23/19 19:09 DC 11/23/19 20:52 Multivitamins (Theragram-M) 1 tab DAILY PO 11/24/19 09:00 11/27/19 08:23 Multivitamins (Theragram-M) 1 tab DAILY PO 11/25/19 09:00 UNV Thiamine HCl (Thiamine HCl) 100 mg BID PO 11/23/19 19:00 11/23/19 19:10 DC 11/23/19 20:52 Thiamine HCl (Thiamine HCl) 100 mg BID PO 11/24/19 16:00 11/27/19 09:01 DC 11/27/19 08:23 Trazodone HCl (Desyrel) 50 mg QHSP PRN PO INSOMNIA 11/24/19 15:15 11/24/19 22:03 Allergies Coded Allergies: No Known Allergies (Verified Allergy, Unknown, 05/21/19) MICHELLE ZHONG MD Nov 27, 2019 15:49
[2019-11-27 16:30] VITALS: BP 140/92
[2019-11-27] MEDS: traZODone 50 MG TAB PO PRN (21:07)
[2019-11-27] MEDS: MIRTAZAPINE 7.5MG PER 1/2 TABLET PO SCH (21:07)
[2019-11-28 06:30] VITALS: BP 144/92
[2019-11-28] MEDS: FOLIC ACID 1 MG TAB PO SCH (09:53)
[2019-11-28] MEDS: MULTIVITAMINS/MINERALS THERAP 1 TAB PO SCH (09:53)
[2019-11-28 17:10] VITALS: BP 160/98
[2019-11-28] MEDS: MIRTAZAPINE 7.5MG PER 1/2 TABLET PO SCH (21:36)
[2019-11-29 06:51] VITALS: BP 142/85
[2019-11-29] MEDS: FOLIC ACID 1 MG TAB PO SCH (08:59)
[2019-11-29] MEDS: MULTIVITAMINS/MINERALS THERAP 1 TAB PO SCH (08:59)
--- NOTE | 2019-11-29 09:53 | MHDSPDOC ---
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 That she began to drink in an argument with her significant other. She reported that this resulted in her being brought in, and she had to report some improvement when she was able to sober up. Her sleep improved, and she subsequently returned to a normal state without incident. MEDICATIONS: She made some progress on a previous medication and was switched to Mirtazapine 7.5 mg nightly and observed for several days where she did quite well and made some improvements. DISCHARGE ASSESSMENT[improved] Legal status considerations: The patient at the time of discharge did not meet criteria for involuntary admission/extension due to having a [normal] mental status exam, [fair] insight into the situation, They are engaged in the discharge process, as well as being friendly and amenable in behavioral control and havent been engaging in any observed concerning behavior or ideation recently. They decline voluntary extension/admission at this time and must be discharged in good devin, as Im unable to make a case for holding the patient against their will. They may have historical risk factors of admissions and other interactions with psychiatry however, those are not modifiable from a clinical perspective. The patient will need to be discharged in good devin. MENTAL STATUS EXAMINATION ON DISCHARGE: [General: Well dressed with good hygiene Speech: Spontaneous and fluid Thought processes: Linear and logical Thought content: Future orientated Abstract reasoning, and computation: Intact Description of associations: Intact Description of abnormal or psychotic thoughts:Denies any suicidal or homicidal ideation. Denies any auditory or visual hallucinations. Does not appear to be responding to internal stimuli. Does not appear to be endorsing any bizarre or paranoid ideation. Judgment: fair Insight: fair Orientation: Alert and orientated 3 Recent and remote memory: Intact Attention span and concentration: Intact Fund of knowledge: Adequate Mood: "okay" Affect: Euthymic with a full range] PLAN/FOLLOWUP ARRANGEMENTS: Follow up appointments made (PCP and MH in 5 days of D/C date) and safety plan completed. Safety Planning aspects completed prior to discharge [Medication supplies limited to 7 days with 4 refills to prevent accumulation to OD] [Family contact completed, educated on safe practices, instructed on removal and mitigation of dangerous means] [RN reviewed crisis hotline information and other aspects to empower patient to access care in interim before next appointment.] The amount of time spent in the coordination of care for this patient was approximately 30 minutes. Vital Signs/I&Os Vital Signs Date Time Temp Pulse Resp B/P (MAP) Pulse Ox O2 Delivery O2 Flow Rate FiO2 11/29/19 06:51 97.4 94 14 142/85 (104) 11/26/19 07:27 Room Air 11/24/19 16:34 97 Medications Scheduled Disulfiram (Disulfiram) 250 Mg Tablet, 1 TAB PO DAILY for alcohol for 30 Days, #30 Mirtazapine (Remeron) 15 Mg Tablet, 7.5 MG PO QHS for depression for 7 Days, #7 Multivitamin (Multivitamins) 1 Each Capsule, 1 CAP PO DAILY, (Reported) Allergies Coded Allergies: No Known Allergies (Verified Allergy, Unknown, 05/21/19) LENA GOODEN DO Nov 29, 2019 09:53
[2019-11-29] MEDS ORDERED: REME15TA PO (13:09)
[2019-11-29] MEDS ORDERED: DISU250T PO (13:09)
== END 2019-11-29 13:25 | disposition home or self-care (01) | DRG 885 ==
LOC: M ED 10:06 → M ED INP 11-24 15:11 → M PSY 11-24 15:45
PROVIDERS: ADMIT Psychiatry & Neurology Psychiatry; ATTEND Psychiatry & Neurology Addiction Medicine
DX: F33.8 Other recurrent depressive disorders (principal); F10.94 Alcohol use, unspecified with alcohol-induced mood disorder; E66.01 Morbid (severe) obesity due to excess calories; R74.01 Elevation of levels of liver transaminase levels; Z79.899 Other long term (current) drug therapy; Z91.5 Personal history of self-harm